=== PATIENT | female | born 1950 | race Hispanic/Latino ===

== ENCOUNTER → 2017-08-18 | Outpatient (CLI) | payer MEDICARE ==
--- NOTE | 2017-08-18 12:41 | Diagnostic Imaging Report ---
Examination: MRI BRAIN WITHOUT CONTRAST History: Headaches. Hand and feet pain. Comparison studies: None Technique: Sagittal T2; axial DWI, FLAIR, GRE or SWI, T1, Coronal FLAIR. Intravenous contrast: None Findings: Scalp: No abnormal signal. No masses. Bone marrow: Normal in signal intensity. Brain volume: Adequate for age. No volume loss. Ventricles: Normal in size and configuration. No hydrocephalus. Extra-axial spaces: No abnormalities. Parenchyma: There are many scattered punctate areas of T2/FLAIR hyperintensity in the periventricular and subcortical white matter, nonspecific. No masses, hemorrhage, or acute vascular insults. Suprasellar and sellar region: Partially CSF filled sella. Craniocervical junction: No abnormalities. The foramen magnum is patent. No Chiari malformations. Vessels: Normal flow-voids in the arteries and sinuses. Additional findings:None. IMPRESSION: 1. No acute intracranial abnormalities. 2. Mild chronic microvascular ischemic change. Signed by: Dr. Cindy Wu M.D. on 08/18/2017 12:38 PM
== END ==
LOC: MRI 07:54
PROVIDERS: ATTEND Specialist
DX: M50.00 Cervical disc disorder with myelopathy, unspecified cervical region (principal)
CPT/HCPCS: 70551